=== PATIENT | male | born 1960 | race Caucasian/White ===

== ENCOUNTER 2020-10-18 06:26 | Inpatient (IN) | payer BC ==
[~2020-10-18] VITALS: Ht 188 cm; Wt 126.4 kg
[2020-10-18] VITALS (7 sets, daily range): BP systolic 114–138; BP diastolic 61–88
[2020-10-18 07:46] LABS: BASOPHILS # (AUTO) 0.1 X10'3 (0-0.2); BASOPHILS % (AUTO) 0.8 % (0-1); EOSINOPHILS # (AUTO) 0.3 X10'3 (0-0.9); EOSINOPHILS % (AUTO) 3.1 % (0-6); HEMATOCRIT 41.8 % (42.0-52.0); HEMOGLOBIN 14.2 g/dl (14.0-17.9); LYMPHOCYTES # (AUTO) 2.1 X10'3 (1.1-4.8); LYMPHOCYTES % (AUTO) 24.1 % (21-51); MEAN CORPUSCULAR HEMOGLOBIN 30.9 PG (27.0-31.0); MEAN CORPUSCULAR VOLUME 90.9 FL (78-98); MEAN PLATELET VOLUME 7.8 FL (7.4-10.4); MONOCYTES # (AUTO) 0.9 X10'3 (0-0.9); NEUTROPHILS # (AUTO) 5.5 X10'3 (1.8-7.7); PLATELET COUNT 294 X10'3 (140-440); RED CELL DISTRIBUTION WIDTH 13.8 % (11.5-14.5); WHITE BLOOD COUNT 8.8 X10'3 (4.5-11.0)
[2020-10-18 07:52] LABS: ALANINE AMINOTRANSFERASE 23 U/L (12-78); ALBUMIN 3.9 G/DL (3.4-5.0); ALBUMIN/GLOBULIN RATIO 0.9 (1.1-1.5); ALKALINE PHOSPHATASE 80 IU/L (46-116); ANION GAP 8 (8-16); ASPARTATE AMINO TRANSFERASE 19 U/L (10-37); BILIRUBIN,TOTAL 0.9 MG/DL (0.1-1.0); BLOOD UREA NITROGEN 11 MG/DL (7-18); BUN/CREATININE RATIO 8.8 (5.4-32.0); CHLORIDE 102 MMOL/L (99-107); CREATININE 1.25 MG/DL (0.60-1.10); GLUCOSE 169 MG/DL (70-104); POTASSIUM 4.2 MMOL/L (3.5-5.1); SODIUM 137 MMOL/L (135-145); TOTAL CARBON DIOXIDE 26.8 MMOL/L (24-32); TOTAL PROTEIN 8.3 G/DL (6.4-8.2); eGFR 59 ML/MIN
[2020-10-18] MEDS ORDERED: morphine 4 MG/ML inj SYRINge IV PRN (08:05)
[2020-10-18] MEDS ORDERED: morphine 4 MG/ML inj SYRINge IV ONE (08:05)
[2020-10-18] MEDS ORDERED: ondansetron/PF 4mg/2ml inj IV ONE (08:05)
--- NOTE | 2020-10-18 08:15 | NUR ---
Note radhaone in EDM - 10/18/20 at 1020 by MASHA Pt on high flow O2 & unable to maintain saturation levels wnl W/ increasing confusion noted. POC includes intubation, per Dr Corey. EDDC Wilmer aware. All AM po meds hold pending intubation.
[2020-10-18] MEDS ORDERED: aspirin 81mg tab.chew PO ONE (08:20)
--- NOTE | 2020-10-18 08:24 | NUR ---
Patient reported to Jamila delgado, that he was concerned regarding the location of his vehicle and trailer. Spoke with Dr. Polanco regarding patient going out to vehicle and moving in location that is specified by . Dr. Polanco stated that patient should be taken out by Wheelchair and prior to leaving ER needs to get ASA. I placed order per Dr. Polanco for ASA 81 mg x4 tablets chewable once now. [facility] will take patient out by wheelchair then back into bed after completing order.
--- NOTE | 2020-10-18 08:25 | NUR ---
Pt gave verbal consent to update which was done. Kailyn, , shared pt is followed by Ismael Leal in [facility]. Per , pt has a cardiac hx, but she was unsure of dates of previous events/dx.
[2020-10-18] MEDS ORDERED: morphine 2 MG/ML inj. syringe IV PRN (08:40)
[2020-10-18] MEDS ORDERED: magnesium 4gm in 100ml NS 100 ML IV PRN (08:40)
[2020-10-18] MEDS ORDERED: acetaminophen 325mg tablet PO PRN ×2 (08:40)
[2020-10-18] MEDS ORDERED: magnesium hydroxide 30ml (MOM) UD suspension PO PRN (08:40)
[2020-10-18] MEDS ORDERED: normal saline 1000ml 1,000 ML IV SCH (08:40)
[2020-10-18] MEDS ORDERED: ondansetron/PF 4mg/2ml inj IV PRN (08:40)
[2020-10-18] MEDS ORDERED: potassium Cl 40MEQ/1/2NS 520ml 520 ML IV PRN ×2 (08:40)
[2020-10-18] MEDS ORDERED: regadenoson 0.4mg/5ml syringe IV ONE (08:40)
[2020-10-18] MEDS ORDERED: nitroGLYCERIN 0.4mg SUBLingual tab SL PRN (08:40)
[2020-10-18] MEDS ORDERED: magnesium Cl slow-release 64mg tablet PO PRN (08:40)
[2020-10-18] MEDS ORDERED: HYDROcodone/acetaminophen 5mg/325mg tablet PO PRN (08:40)
[2020-10-18] MEDS ORDERED: metoprolol tartrate 1mg/ml inj IV PRN (08:40)
[2020-10-18] MEDS ORDERED: mag hydrox/Alum hydrox/simeth 30ml oral suspension PO PRN (08:40)
[2020-10-18] MEDS ORDERED: potassium Cl 20 mEq SR tablet PO PRN ×2 (08:40)
[2020-10-18] MEDS ORDERED: magnesium 2GM in 50ml NS 50 ML IV PRN (08:40)
[2020-10-18] MEDS ORDERED: aminophylline 250mg/10ml inj. IV PRN (08:40)
[2020-10-18] MEDS ORDERED: MESSAGE TO PHARMACY PO ONE (09:05)
[2020-10-18] MEDS ORDERED: dextrose ORAL solution 15 GM/59 ML bottle PO PRN ×2 (09:05)
[2020-10-18] MEDS ORDERED: lisinopril 10 MG tablet PO SCH (09:05)
[2020-10-18] MEDS ORDERED: glucagon, human recombinant 1mg kit SUBCUT PRN (09:05)
[2020-10-18] MEDS ORDERED: dextrose 50%-water 50ml dispensing syringe IV PRN ×2 (09:05)
[2020-10-18] MEDS ORDERED: insulin Lispro (HumaLOG) vial - multi-dose SQ SCH (09:05)
[2020-10-18 09:32] LABS: CHOL/HDL RATIO 5.7 (0.00-4.99); CHOLESTEROL 171 MG/DL (0-200); HDL CHOLESTEROL 30 MG/DL (35-60); LDL CHOLESTEROL 112 MG/DL (50-100); TRIGLYCERIDES 130 MG/DL (20-135)
[2020-10-18] MEDS ORDERED: HYDR-3972 PO (12:38)
--- NOTE | 2020-10-18 12:43 | NUR ---
to [place] w/ Armen, tech
[2020-10-18] MEDS ORDERED: CefTRIAXone 2gm/D5W 50ml BAG 50 ML IV SCH (12:45)
[2020-10-18] MEDS ORDERED: albuterol 2.5 MG/3 ML nebule NEB PRN ×2 (12:45→12:50)
--- NOTE | 2020-10-18 12:47 | NUR ---
Discussed pt's c/o pain with inspiration with Dr Ellis; new order for Albuterol neb tx q6h received. Per Dr Ellis, pt to be started on abx as well. She is ordering those.
[2020-10-18] MEDS ORDERED: albuterol 2.5 MG/3 ML nebule NEB SCH (15:15)
[2020-10-18] MEDS ORDERED: LORazepam 2 mg/ml vial IV PRN (15:45)
[2020-10-18] MEDS ORDERED: LORazepam 0.5 MG tablet PO PRN (15:45)
[2020-10-18] MEDS ORDERED: LISI10TA27 PO (17:45)
[2020-10-18] MEDS ORDERED: NICO-631 TD (17:45)
[2020-10-18] MEDS ORDERED: LEVO500T89 PO (17:45)
[2020-10-18] MEDS ORDERED: ROBCFL PO (18:11)
[2020-10-18] MEDS ORDERED: METF-950 PO (18:39)
[2020-10-18] MEDS ORDERED: docusate sod 100mg capsule PO SCH (20:00)
[2020-10-18] MEDS ORDERED: K and/or MAG REPLACEMENT MC SCH (20:00)
[2020-10-18] MEDS ORDERED: heparin, porcine 5000 units/ml vial SQ SCH (20:00)
[2020-10-18] MEDS ORDERED: insulin glargine (Lantus) pen - multi-dose SQ SCH (21:00)
[2020-10-18] MEDS ORDERED: temazepam 15mg capsule PO PRN (21:00)
[2020-10-19] MEDS ORDERED: pantoprazole 40mg Tablet.DR PO SCH (07:30)
[2020-10-19] MEDS ORDERED: nicotine 14mg patch - 24hr TD SCH (08:00)
== END 2020-10-18 19:00 | disposition home or self-care (01) | DRG 313 ==
LOC: ER 06:27 → ED HOLD 08:36 → UNDOADMIN 08:36 → ED HOLD 08:43 → UNDODISIN 19:00
PROVIDERS: ADMIT Internal Medicine; ATTEND Internal Medicine
PROC: 4A02XM4 Measurement of Cardiac Total Activity, External Approach (ICD-10-PCS; principal; 2020-10-18)
PROC: 3E073KZ Introduction of Other Diagnostic Substance into Coronary Artery, Percutaneous Approach (ICD-10-PCS; 2020-10-18)
DX: R07.89 Other chest pain (principal); E66.9 Obesity, unspecified; F41.9 Anxiety disorder, unspecified; E11.65 Type 2 diabetes mellitus with hyperglycemia; N28.9 Disorder of kidney and ureter, unspecified; I10 Essential (primary) hypertension; F17.220 Nicotine dependence, chewing tobacco, uncomplicated; Z68.35 Body mass index [BMI] 35.0-35.9, adult
CPT/HCPCS: 36415; 71045; 78452; 80053; 80061; 83036; 83880; 84484; 85025; 93005; 93017; 93306; 94640; 94760; 99285; A9500; G0378; J0696; J1815; J2060; J2270; J2405; J2785; J7030